=== PATIENT | male | born 1970 | race Two or more races ===

== ENCOUNTER 2018-12-01 12:36 | Emergency (ER) | payer SELFPAY ==
[~2018-12-01] VITALS: Ht 175.3 cm; Wt 74.8 kg
--- NOTE | 2018-12-01 14:33 | NUR ---
NO ANSWER AT 1430
--- NOTE | 2018-12-01 14:42 | NUR ---
NO ANSWER FROM LOBBY
--- NOTE | 2018-12-01 15:00 | NUR ---
FROM LOBBY TO ROOM AT THIS TIME
--- NOTE | 2018-12-01 15:09 | NUR ---
PT C/O [place] ON AND OFF FOR YEARS. 2-3/MONTH, SOMETIMES LAST ALL DAY. WITH DIZZINESS, SENSITIVITY TO LIGHT AND BACK PAIN. NEURO INTACT UPON ASSESSMENT. CONNECTED TO MONITORING. VSS. FAMILY AT BEDSIDE. CALL LIGHT IN REACH. ORDERS RECEIVED.
[2018-12-01] MEDS ORDERED: SODIUM CHLORIDE FLUSH 10ML SYR IVF ONE (15:30)
[2018-12-01] MEDS ORDERED: KETOROLAC 30 MG/1 ML IVPush ONE (15:30)
[2018-12-01] MEDS ORDERED: DIPHENHYDRAMINE 50 MG/ML, 1ML IVPush ONE (15:30)
[2018-12-01] MEDS ORDERED: METHOCARBAMOL 750 MG TABLET PO ONE (15:30)
[2018-12-01] MEDS ORDERED: DIPHENHYDRAMINE 50 MG/ML, 1ML ONE (15:30)
[2018-12-01] MEDS ORDERED: METOCLOPRAMIDE 5 MG/ML, 2ML IVPush ONE (15:30)
[2018-12-01] MEDS ORDERED: METHOCARBAMOL 750 MG TABLET ONE (15:30)
[2018-12-01] MEDS ORDERED: METOCLOPRAMIDE 5 MG/ML, 2ML ONE (15:31)
[2018-12-01] MEDS ORDERED: KETOROLAC 30 MG/1 ML ONE (15:31)
--- NOTE | 2018-12-01 16:03 | NUR ---
ALL RESULTS BACK AT THIS TIME, CHART UP FOR RECHECK
[2018-12-01 16:53] VITALS: BP 96/61
== END 2018-12-01 16:56 | disposition home or self-care (01) ==
LOC: ED 16:50
DX: R51 Headache (principal); F17.200 Nicotine dependence, unspecified, uncomplicated
CPT/HCPCS: 70450; 72050; 96374; 96375; 99284; J1200; J1885; J2765